=== PATIENT | female | born 1945 | race Caucasian/White ===

== ENCOUNTER 2017-02-17 19:46 | Emergency (ER) | payer MEDICARE ==
[2017-02-17] MEDS ORDERED: NS 0.9% 1000 ML* 1,000 ML IV ONE (21:30)
--- NOTE | 2017-02-17 21:55 | RAD ---
INDICATION: Shortness of breath COMPARISON: None. TECHNIQUE: Single AP portable view of the chest was obtained. FINDINGS: Image quality is compromised due to the relative inferiority of a portable chest x-ray. The heart and mediastinum exhibit normal size and contour. There is patchy infiltrate partially obscuring the right lung base. Lungs are well-aerated elsewhere. Visualized bones are normal for the patient's age. IMPRESSION: Density at the right lung base could represent pneumonia in the correct clinical setting.
[2017-02-17] MEDS ORDERED: Levofloxacin 750 MG IVPREMIX(* 750 MG/150 ML BAG IVPB ONE (21:59)
[2017-02-17 22:25] LABS: Hematocrit 35 % (35-47); Hemoglobin 11.7 g/dl (12.0-16.0); Mean Corpuscular HGB Conc 33 g/dl (31-36); Mean Corpuscular Hemoglobin 27 pg (27-31); Mean Corpuscular Volume 81 fL (80-97); Mean Platelet Volume 9 um3 (7.4-10.4); Red Blood Count 4.29 10^6/ul (4.0-5.4); Red Cell Distribution Width 14 % (10.5-15)
[2017-02-17 22:41] LABS: Albumin 3.7 g/dL (3.2-5.2); BUN/Creatinine Ratio 20.6 (8-20); C Reactive Protein 131.7 mg/L (< 5.00); EGFR Non-African American 85.5 (>60); Globulin 3.7 g/dL (2-4); Potassium 3.1 mmol/L (3.5-5.0); Total Bilirubin 0.5 mg/dL (0.2-1.0); Total Protein 7.4 g/dL (6.4-8.9)
[2017-02-17 22:52] LABS: PCO2 Arterial 35 mmHg (35-45)
[2017-02-17] MEDS ORDERED: Potassium Chlor TAB* 20 MEQ TAB.ER PO ONE (22:54)
[2017-02-17] MEDS ORDERED: Codeine TAB* 15 MG PO ONE (22:58)
--- NOTE | 2017-02-17 23:23 | ED ---
Malu Hull Thomas, scribed for Prince Lang MD on 02/17/17 at 2137 . Respiratory - HPI Summary HPI Summary: The pt is a 71 y/o F referred from Urgent Care c/o a cough for the last month. The patient was diagnosed with bacterial PNA five days ago at a clinic in [place]. Today, the patient finished a course of Azithromycin that did not seem to improve her symptoms. The patient was given acetaminophen 500mg when she was at Urgent Care about two hours ago. Pt additionally c/o SOB and insomnia secondary to the cough. The patient had a fever a few days ago at 103. Earlier today, the patients temperature was 101.1. Pt denies CP. She is a former smoker. The patient had an 8-hour bus ride from [place] in the last few days with only one stop. - History of Current Complaint Chief Complaint: EDShortnessOfBreath Stated Complaint: SOB/CONGESTION/FEVER Time Seen by Provider: 02/17/17 21:18 Hx Obtained From: Patient Onset/Duration: Lasting Weeks - one month, Still Present Current Severity: Moderate Pain Intensity: 0 Character: Cough (Nonproductive) Aggravating Factor(s): Nothing Alleviating Factor(s): Nothing Associated Signs and Symptoms: Fever, SOB - Allergy/Home Medications Allergies/Adverse Reactions: Allergies Allergy/AdvReac Type Severity Reaction Status Date / Time No Known Allergies Allergy Verified 02/17/17 19:54 PMH/Surg Hx/FS Hx/Imm Hx Previously Healthy: Yes Endocrine/Hematology History: Denies: Hx Diabetes Cardiovascular History: Denies: Hx Hypertension Infectious Disease History: No Infectious Disease History: Denies: Traveled Outside the [place] in Last 30 Days - Family History Known Family History: Positive: Cardiac Disease - Social History Alcohol Use: Occasionally Substance Use Type: Reports: None Hx Tobacco Use: Yes Smoking Status (MU): Former Smoker Review of Systems Positive: Fever Negative: Chest Pain Positive: Shortness Of Breath, Cough Neurological: Other - Insomnia secondary to the cough All Other Systems Reviewed And Are Negative: Yes Physical Exam - Summary Physical Exam Summary: VITAL SIGNS: Reviewed. GENERAL: Patient is a well-developed and nourished female who is lying comfortable in the stretcher. Patient is not in any acute respiratory distress. HEAD AND FACE: No signs of trauma. No ecchymosis, hematomas or skull depressions. No sinus tenderness. EYES: PERRLA, EOMI x 2, No injected conjunctiva, no nystagmus. EARS: Hearing grossly intact. Ear canals and tympanic membranes are within normal limits. MOUTH: Oropharynx within normal limits. NECK: Supple, trachea is midline, no adenopathy, no JVD, no carotid bruit, no c- spine tenderness, neck with full ROM. CHEST: Symmetric, no tenderness at palpation LUNGS: Clear to auscultation bilaterally. No wheezing or crackles. CVS: Regular rate and rhythm, S1 and S2 present, no murmurs or gallops appreciated. ABDOMEN: Soft, non-tender. No signs of distention. No rebound no guarding, and no masses palpated. Bowel sounds are normal. EXTREMITIES: FROM in all major joints, no edema, no cyanosis or clubbing. NEURO: Alert and oriented x 3. No acute neurological deficits. Speech is normal and follows commands. SKIN: Dry and warm Triage Information Reviewed: Yes Vital Signs On Initial Exam: Initial Vitals Temp Pulse Resp BP Pulse Ox 100.6 F 109 20 138/80 91 02/17/17 19:49 02/17/17 19:49 02/17/17 19:49 02/17/17 19:49 02/17/17 19:49 Vital Signs Reviewed: Yes - Jennifer Coma Scale Coma Scale Total: 15 Diagnostics - Vital Signs Vital Signs Temp Pulse Resp BP Pulse Ox 02/17/17 21:23 97.5 F 97 95 02/17/17 21:22 140/67 02/17/17 19:49 100.6 F 109 20 138/80 91 - Laboratory Result Diagrams: 02/17/17 21:45 02/17/17 21:45 Lab Statement: Any lab studies that have been ordered have been reviewed, and results considered in the medical decision making process. - Radiology CXR Xray Interpretation: Positive (See Comments) - Density at the right lung base could represent pneumonia in the correct clinical setting. ED physician has reviewed this report and agrees. Radiology Interpretation Completed By: Radiologist Disposition - Course Assessment/Plan: The pt is a 71 y/o F referred from Urgent Care c/o a cough for the last month. The patient was diagnosed with bacterial PNA five days ago at a clinic in [place]. Today, the patient finished a course of Azithromycin that did not seem to improve her symptoms. The patient was given acetaminophen 500mg when she was at Urgent Care about two hours ago. Pt additionally c/o SOB and insomnia secondary to the cough. The patient had a fever a few days ago at 103. Earlier today, the patients temperature was 101.1. Pt denies CP. She is a former smoker. The patient had an 8-hour bus ride from [place] in the last few days with only one stop. The patient has pneumonia. She feels better. She seems comfortable. I gave her the option of staying or going home. She would rather go home. She will be discharged home with primary care follow up and a script for antibiotics. - Diagnoses Provider Diagnoses: PNA (pneumonia) Discharge - Discharge Plan Condition: Stable Disposition: HOME Patient Education Materials: Pneumonia (ED) Referrals: [facility] [[place]] - 3 Days Additional Instructions: Follow up with your primary care physician in three days. Return to the emergency department for any new or worsening symptoms. The documentation as recorded by the Malu thomas Thomas accurately reflects the service I personally performed and the decisions made by me, Prince Lang MD.
[2017-02-17] MEDS ORDERED: Acetaminop/Codeine 30 MG TAB* 1 TAB (300 MG/30 MG) PO ONE (23:58)
[2017-02-18 01:13] VITALS: BP 128/65
== END 2017-02-18 01:13 | disposition home or self-care (01) ==
LOC: ED 19:46
DX: J18.9 Pneumonia, unspecified organism (principal); Z87.891 Personal history of nicotine dependence
CPT/HCPCS: 36415; 36600; 71010; 80053; 82803; 83605; 85025; 85610; 85730; 86140; 87040; 87502; 96360; 96374; 99283; A9270-GY